=== PATIENT | male | born 1985 | race Caucasian/White ===

== ENCOUNTER 2016-09-28 15:37 | Emergency (ER) | payer OTHER ==
[2016-09-28 15:53] VITALS: BP 131/73
[2016-09-28] MEDS ORDERED: Lidocaine 1% 20 ML MDV INJECT ONE (16:14)
[2016-09-28] MEDS ORDERED: Bupivacaine 0.5% 10 ML SDV INJECT ONE (16:14)
[2016-09-28] MEDS ORDERED: ceFAZolin 1 GM in Premix Bag 1 BAG IV ONE (16:15)
[2016-09-28] MEDS ORDERED: Diphtheria,Pertussis(Acell),Tetanus Vaccine 0.5 ML Syringe IM ONE (16:17)
--- NOTE | 2016-09-28 16:27 | EDM.PDOC ---
ED HPI GENERAL MEDICAL PROBLEM - General Chief Complaint: Upper Extremity Injury/Pain Stated Complaint: PAIN LT HAND Time Seen by Provider: 09/28/16 15:54 Source of Information: Reports: Patient History Limitations: Reports: No Limitations - History of Present Illness INITIAL COMMENTS - FREE TEXT/NARRATIVE: History of present illness: []Patient was carrying a metal pipe while he tripped over a pipe and the pipe that he was carrying smashed his left small finger at noon today. Review of systems: As per history of present illness and below otherwise all systems reviewed and negative. Past medical history: As per history of present illness and as reviewed below otherwise noncontributory. Surgical history: As per history of present illness and as reviewed below otherwise noncontributory. Social history: No reported history of drug or alcohol abuse. Family history: As per history of present illness and as reviewed below otherwise noncontributory. Physical exam: General: Well developed, well nourished in NAD HEENT: Atraumatic, normocephalic, pupils reactive, negative for conjunctival pallor or scleral icterus, mucous membranes moist, throat clear, neck supple, nontender, trachea midline. Lungs: Clear to auscultation, breath sounds equal bilaterally, chest nontender. Heart: S1S2, regular, negative for clicks, rubs, or JVD. Abdomen: Soft, nondistended, nontender. Negative for masses or hepatosplenomegaly. Negative for costovertebral tenderness. Pelvis: Stable nontender. Genitourinary: Deferred. Rectal: Deferred. Extremities: 1.5 centimeter laceration left dorsal base of the small finger, patient has sensation distally and brisk capillary refill. He is able to generally move his finger fully from the MCP joint. He is unable to move it from the PIP and DIP joints effectively. negative for cords or calf pain. Neurovascular unremarkable. Neuro: Awake, alert, oriented. Cranial nerves II through XII unremarkable. Cerebellum unremarkable. Motor and sensory unremarkable throughout. Exam nonfocal. Diagnostics: []X-ray showing transverse fracture shaft of the proximal phalanx of the fifth finger Therapeutics: []Ancef, gentamicin, tetanus updated, in digital block Impression: []Open fracture left fifth proximal phalanx Plan: []I consulted Dr. Jace Jean-Baptiste answered in [place] and he recommended ulnar gutter, Keflex, pain meds and follow-up in 48 hours. Patient will need surgery for pinning. He can see the patient in [place] at 4 PM on September 30 if she is unable to follow-up with Dr. Welch here locally. Definitive disposition and diagnosis as appropriate pending reevaluation and review of above. Left Hand Pain Score (Numeric/FACES): 4 - Related Data Allergies Allergy/AdvReac Type Severity Reaction Status Date / Time No Known Allergies Allergy Verified 09/28/16 15:51 Home Meds: Home Meds . [No Known Home Meds] 09/28/16 [History] Past Medical History - Past Health History Medical/Surgical History: Denies Medical/Surgical History Social & Family History - Family History Family Medical History: Noncontributory - Tobacco Use Smoking Status *Q: Never Smoker - Recreational Drug Use Recreational Drug Use: No Review of Systems - Review of Systems Review Of Systems: See Below (See history of present illness) ED EXAM, GENERAL - Physical Exam Exam: See Below (See history of present illness) Course - Vital Signs Last Recorded V/S: Last Vital Signs Temp 36.7 C 09/28/16 15:51 Pulse 64 09/28/16 15:51 Resp 18 09/28/16 15:51 BP 131/73 09/28/16 15:51 Pulse Ox 96 09/28/16 15:51 - Orders/Labs/Meds Orders: Active Orders 24 hr Category Date Time Status Vaccines to be Administered [RC] PER UNIT ROUTINE Care 09/28/16 16:17 Active Hand Comp Min 3V Lt [CR] Stat Exams 09/28/16 15:53 Taken Bacitracin [Bacitracin Oint 1 GM] Med 09/28/16 17:15 Once 1 dose TOP ONETIME ONE Gentamicin 500 mg Med 09/28/16 17:15 Active Sodium Chloride 0.9% [Normal Saline] 100 ml IV ONETIME Saline Lock Insert [OM.PC] Stat Oth 09/28/16 16:15 Ordered Medication Orders Gentamicin Sulfate 500 mg/ (Sodium Chloride) 112.5 mls @ 180 mls/hr IV ONETIME ONE Stop: 09/28/16 17:52 Meds: Medications Generic Name Dose Route Start Last Admin Trade Name Freq PRN Reason Stop Dose Admin Gentamicin Sulfate 500 mg/ 112.5 mls @ 180 mls/hr 09/28/16 17:15 Sodium Chloride IV 09/28/16 17:52 ONETIME ONE Discontinued Medications Generic Name Dose Route Start Last Admin Trade Name Shama PRN Reason Stop Dose Admin Bupivacaine HCl 10 ml 09/28/16 16:14 09/28/16 16:19 Sensorcaine-Mpf 0.5% INJECT 09/28/16 16:15 10 ml ONETIME ONE Administration Diphtheria/Tetanus/Acell Pertussis 0.5 ml 09/28/16 16:17 09/28/16 16:25 Adacel IM 09/28/16 16:18 0.5 ml .ONCE ONE Administration Cefazolin Sodium/Dextrose 1 gm 50 mls @ 100 mls/hr 09/28/16 16:15 09/28/16 16 :24 / Premix IV 09/28/16 16:44 100 mls/hr ONETIME ONE Administration Gentamicin Sulfate 500 mg/ 62.5 mls @ 100 mls/hr 09/28/16 16:31 Sodium Chloride IV 09/28/16 17:02 ONETIME ONE Lidocaine HCl 20 ml 09/28/16 16:14 09/28/16 16:19 Xylocaine 1% INJECT 09/28/16 16:15 20 ml ONETIME ONE Administration Departure - Departure Time of Disposition: 17:24 Disposition: Home, Self-Care 01 Condition: Good Clinical Impression: Fracture of finger, proximal phalanx, left, open Qualifiers: Encounter type: initial encounter Finger: little finger Fracture alignment: displaced Qualified Code(s): S62.617B - Displaced fracture of proximal phalanx of left little finger, initial encounter for open fracture Clinical Impression: (Ruled Out): Open fracture, Open fracture of phalanx of left fifth toe, Open fracture of left hand - Discharge Information Forms: ED Department Discharge Additional Instructions: The following information is given to patients seen in the emergency department who are being discharged to home. This information is to outline your options for follow-up care. We provide all patients seen in our emergency department with a follow-up referral. The need for follow-up, as well as the timing and circumstances, are variable depending upon the specifics of your emergency department visit. If you don't have a primary care physician on staff, we will provide you with a referral. We always advise you to contact your personal physician following an emergency department visit to inform them of the circumstance of the visit and for follow-up with them and/or the need for any referrals to a consulting specialist. The emergency department will also refer you to a specialist when appropriate. This referral assures that you have the opportunity for follow-up care with a specialist. All of these measure are taken in an effort to provide you with optimal care, which includes your follow-up. Under all circumstances we always encourage you to contact your private physician who remains a resource for coordinating your care. When calling for follow-up care, please make the office aware that this follow-up is from your recent emergency room visit. If for any reason you are refused follow-up, please contact the [facility] Emergency Department at and asked to speak to the emergency department charge nurse. Ice and elevate hand much as possible, Keflex 4 times a day for 10 days, Haldol and/or Motrin for pain, follow up with Dr. Welch call tomorrow for appointment: [facility] Specialty Care - Plastic Surgery Professional Building [address] [place] [address], [address] [place] [address] If you cannot get in tomorrow or Thursday early follow up with Dr. Jace Jean-Baptiste on September 30 at 4 PM in [place] Call [phone] to make that appointment. Return to ER if any fevers, redness, increased pain occur - My Orders Last 24 Hours: My Active Orders 09/28/16 15:53 Hand Comp Min 3V Lt [CR] Stat 09/28/16 16:15 Saline Lock Insert [OM.PC] Stat 09/28/16 16:17 Vaccines to be Administered [RC] PER UNIT ROUTINE 09/28/16 17:15 Bacitracin [Bacitracin Oint 1 GM] 1 dose TOP ONETIME ONE Gentamicin 500 mg Sodium Chloride 0.9% [Normal Saline] 100 ml IV ONETIME - Assessment/Plan Last 24 Hours: My Active Orders 09/28/16 15:53 Hand Comp Min 3V Lt [CR] Stat 09/28/16 16:15 Saline Lock Insert [OM.PC] Stat 09/28/16 16:17 Vaccines to be Administered [RC] PER UNIT ROUTINE 09/28/16 17:15 Bacitracin [Bacitracin Oint 1 GM] 1 dose TOP ONETIME ONE Gentamicin 500 mg Sodium Chloride 0.9% [Normal Saline] 100 ml IV ONETIME
[2016-09-28] MEDS ORDERED: GENTAMICIN IV ONE (16:31)
[2016-09-28] MEDS ORDERED: SODIUM CHLORIDE 0.9% IV ONE (16:31)
[2016-09-28] MEDS ORDERED: Gentamicin 500 MG in Sodium Chloride 0.9% 100 ML IV ONE (17:15)
[2016-09-28] MEDS ORDERED: Bacitracin Oint 1 GM U/D Packet TOP ONE (17:15)
--- NOTE | 2016-09-29 15:03 | CR ---
EXAM DATE: 09/28/16 PATIENT'S AGE: 30 Patient: LUCIO MERINO Facility: [place], [place] Site . Site : 1985 Study: XRay Extremity Left HAND [id number]/23/2017 4:06:50 PM Ordering Physician: Ney Mcguire Final Report: HISTORY Deformity, pain and numbness after crush injury. Findings: Three views of the left hand are provided. There is a transverse fracture through the midportion of the proximal phalanx of the 5th finger with complete ulnar displacement of the distal fragment by the width of the shaft as well as overriding of the margins by approximately 6-7 mm. There is no evidence for fracture, dislocation or arthritic change elsewhere. Dictated by Valente Willams MD @ Sep 28 2016 4:10PM (Electronic Signature) Report Signed by Proxy. NIC
--- NOTE | 2016-09-29 15:04 | CR ---
EXAM DATE: 09/28/16 PATIENT'S AGE: 30 Patient: LUCIO MERINO Facility: [place], [place] Site Site : 1985 Study: XRay Extremity Left HAND [id number]/23/2017 6:17:54 PM Ordering Physician: EMERSON PRINCE MD Final Report: Indication: Fracture status post splint placement Technique: Two views left hand Comparison: Same date at 3:57 p.m. Findings: There is a splint along the lateral aspect of the left hand with improved alignment of a mildly displaced transverse fracture through the midshaft of the left 5th proximal phalanx. There is a volar apex angulation of the fracture. The distal fracture fragment is medially displaced approximately 1/2 shaft width. Impression: Improvement in alignment of a mildly displaced fracture through the midshaft of the left 5th proximal phalanx. Dictated by Danielle Vega MD @ Sep 28 2016 6:33PM (Electronic Signature) Report Signed by Proxy. NIC
== END 2016-09-28 18:43 | disposition home or self-care (01) ==
LOC: MW.ED 15:37
DX: S62.617B Displaced fracture of proximal phalanx of left little finger, initial encounter for open fracture (principal); W23.1XXA Caught, crushed, jammed, or pinched between stationary objects, initial encounter; Z23 Encounter for immunization
CPT/HCPCS: 29125; 64450; 73120; 73130; 90471; 90715; 96365; 99283; J0690; J1580; J7030

== ENCOUNTER 2016-10-01 09:43 | Day surgery (SDC) | payer OTHER ==
[~2016-10-01 09:43] MED LIST: Bupivacaine 0.25%/EPINEPHrine 1:200,000 10 ML SDV ONE; Lactated Ringers 1,000 ML IV SCH; ceFAZolin 2 GM in Premix Bag 1 BAG IV ONE
[2016-10-01] MEDS ORDERED: Bupivacaine 0.25%/EPINEPHrine 1:200,000 10 ML SDV INJECT ONE (10:00)
[2016-10-01] MEDS ORDERED: Acetaminophen/HYDROcodone 325-5 MG Tab PO PRN (10:00)
--- NOTE | 2016-10-01 10:29 | PCM.PREANE ---
Preanesthetic Assessment - Anesthesia/Transfusion/Family Hx Anesthesia History: No Prior Anesthesia Family History of Anesthesia Reaction: No Transfusion History: No Prior Transfusion(s) Intubation History: Unknown - Review of Systems General: No Symptoms Pulmonary: No Symptoms Cardiovascular: No Symptoms Gastrointestinal: No Symptoms Neurological: No Symptoms Other: Reports: None - Physical Assessment O2 Sat by Pulse Oximetry: 98 Respiratory Rate: 16 Vital Signs: Last Vital Signs Temp 37.9 C 10/01/16 10:11 Pulse 54 L 10/01/16 10:11 Resp 16 10/01/16 10:11 BP 125/70 10/01/16 10:11 Pulse Ox 98 10/01/16 10:11 Height: 1.78 m Weight: 107.048 kg ASA Class: 2 Mental Status: Alert & Oriented x3 Airway Class: Mallampati = 2 Dentition: Reports: Normal Dentition Thyro-Mental Finger Breadths: 3 Mouth Opening Finger Breadths: 3 ROM/Head Extension: Full Lungs: Clear to Auscultation, Normal Respiratory Effort Cardiovascular: Regular Rate, Regular Rhythm - Allergies Allergies/Adverse Reactions: Allergies Allergy/AdvReac Type Severity Reaction Status Date / Time No Known Allergies Allergy Verified 09/28/16 15:51 - Acknowledgements Anesthesia Type Planned: General Anesthesia Pt an Appropriate Candidate for the Planned Anesthesia: Yes Alternatives and Risks of Anesthesia Discussed w Pt/Guardian: Yes Pt/Guardian Understands and Agrees with Anesthesia Plan: Yes PreAnesthesia Questionnaire - Past Health History Medical/Surgical History: Denies Medical/Surgical History Musculoskeletal History: Reports: Other (See Below) (left small finger proximal phalanx fx) Endocrine/Metabolic History: Reports: Obesity/BMI 30+ - Past Surgical History Head Surgeries/Procedures: Reports: None - SUBSTANCE USE Smoking Status *Q: Never Smoker Recreational Drug Use History: No - HOME MEDS Home Medications: Home Meds Cephalexin 500 mg PO QID 09/29/16 [History] Ibuprofen [Advil] 3 tab PO ASDIRECTED PRN 09/29/16 [History] traMADol HCl [Tramadol HCl] 50 mg PO ASDIRECTED PRN 09/29/16 [History] - CURRENT (IN HOUSE) MEDS Current Meds: Current Medications Hydrocodone Bitart/Acetaminophen (Hamler 325-5 Mg) 1 tab PO Q4H PRN PRN Reason: Pain Lactated Ringer's (Ringers, Lactated) 1,000 mls @ 125 mls/hr IV ASDIRECTED RAZIA Last Admin: 10/01/16 10:17 Dose: 125 mls/hr Discontinued Medications Bupivacaine HCl/Epinephrine Bitart (Marcaine 0.25%/Epinephrine 1:200,000) 20 ml INJECT ONETIME ONE Stop: 10/01/16 10:01 Bupivacaine HCl/Epinephrine Bitart (Marcaine 0.25%/Epinephrine 1:200,000) Confirm Administered Dose 20 ml .ROUTE .STK-MED ONE Stop: 10/01/16 07:29 Cefazolin Sodium/Dextrose 2 gm (/ Premix) 50 mls @ 100 mls/hr IV ONETIME ONE Stop: 10/01/16 08:57
[2016-10-01] MEDS ORDERED: Propofol 200 MG/20 ML SDV ONE (12:43)
[2016-10-01] MEDS ORDERED: Ondansetron 4 MG/2 ML SDV ONE (12:43)
[2016-10-01] MEDS ORDERED: Midazolam 1 MG/ML 2 ML SDV ONE (12:43)
[2016-10-01] MEDS ORDERED: fentaNYL 250 MCG/5 ML SDV ONE (12:43)
[2016-10-01] MEDS ORDERED: ceFAZolin 1 GM Vial ONE (12:50)
[2016-10-01] MEDS ORDERED: HYDROmorphone 2 MG/ML Syringe ONE (12:55)
[2016-10-01] MEDS ORDERED: Dexamethasone 4 MG/ML 5 ML MDV ONE (13:02)
[2016-10-01] MEDS ORDERED: Ketorolac 30 MG/ML SDV ONE (13:10)
[2016-10-01 14:31] VITALS: BP 120/74
--- NOTE | 2016-10-02 09:11 | PCM.OPNOTE ---
- General Post-Op/Procedure Note Date of Surgery/Procedure: 10/01/16 Operative Procedure(s): open reduction pin fixation of left small finger proximal phalanx fracture Pre Op Diagnosis: left small finger proximal phalanx fracture Post-Op Diagnosis: Same Anesthesia Technique: General LMA, Local Primary Surgeon: Maryann Welch Roofer Helper: Danielle Bourne Complications: None Condition: Good Free Text/Narrative:: [id number]
--- NOTE | 2016-10-02 11:11 | OR ---
SURGEON: DEENA BOWLES MD DATE OF PROCEDURE: 10/01/2016 PREOPERATIVE DIAGNOSIS: Left small finger proximal phalanx fracture. POSTOPERATIVE DIAGNOSIS: Left small finger proximal phalanx fracture. PROCEDURE: Open reduction pin fixation of left small finger proximal phalanx fracture. BIOFUELS MANAGER: AMY Mata ANESTHESIA: General LMA with local. INDICATIONS: Mr. Ramesh Belle is seen today in evaluation for an open fracture of the left small finger proximal phalanx. He was seen in the emergency room and referral was made to [place], but he was unable to be transferred there. The patient opted to follow up with us the next in clinic. We discussed risks and benefits of open reduction and percutaneous pin fixation. He was in agreement to proceed. Unfortunately, he is outside of the 6-hour window for standard of care that we would prefer, but the emergency room copiously washed out the wound and did close the incision line with Steri-Strips and placed them in a splint until followup. We discussed risks and benefits including a slightly increased risk of infection given the timeframe. He would still like to proceed and we will do this in the operating room for the best outcome for him. Risks were including, but not limited to, bleeding, infection, damage to underlying or overlying structures, possible need for future interventions and possible scarring and possible increased risk of infection. He understands and wishes to proceed. This was a work for safety injury. PROCEDURE IN DETAIL: After informed consent was obtained and placed on the chart, the patient was brought to the operating theater and laid in supine position. After adequate general LMA anesthesia was obtained, the area was prepped and draped in a normal fashion. A time-out was completed to confirm side and site. Attention was then paid to prepping and draping with a Betadine cleansing solution and attention was then paid to fluoroscopic examination. Using the dorsal laceration, the reduction was obtained and held in place. Two 0.45 K- wires were then placed longitudinally down the shaft of the fracture itself. Once this was completed, an appropriate reduction was confirmed with fluoroscopy. Attention was then paid to closure of the wound using a 5-0 stitch in an interrupted fashion. The wound was copiously irrigated prior to closure and all tendons were appreciated to be intact. The pin sites were then covered with Jurgan balls after being trimmed and dressed with Xeroform. The incision was dressed with Xeroform as well. A short- arm ulnar gutter splint was then placed. The patient tolerated this well with plaster. All counts and needles were correct at the end of the case and the patient tolerated this well. FOLLOWUP INSTRUCTIONS: The patient will see us in clinic in approximately 2 weeks and sooner if any problems, questions, or concerns. He was given a prescription for [place] for pain control. HEGGTHE / DONTEL /[id number]
--- NOTE | 2016-10-10 15:07 | CR ---
EXAMINATION: Left hand HISTORY: Reduction COMPARISON: 09/28/2016 TECHNIQUE: 4 films provided FINDINGS/IMPRESSION: Operative control films demonstrate reduction of a mid fifth proximal phalanx f racture fixated by 2 pins.
== END 2016-10-01 14:29 | disposition home or self-care (01) ==
LOC: MW.SDS 09:43
PROVIDERS: ATTEND Plastic Surgery
DX: S62.617B Displaced fracture of proximal phalanx of left little finger, initial encounter for open fracture (principal)
CPT/HCPCS: 26735; J0690; J1100; J1170; J1885; J2250; J2405; J3010; J7120; 01820; 76000; 76000-26; J2704

== ENCOUNTER 2017-07-23 22:45 | Emergency (ER) | payer OTHER ==
--- NOTE | 2017-07-23 23:08 | EDM.PDOC ---
ED HPI GENERAL MEDICAL PROBLEM - General Chief Complaint: Behavioral/Psych Stated Complaint: MENTAL HEALTH Time Seen by Provider: 07/23/17 23:08 Source of Information: Reports: Patient, Police - History of Present Illness INITIAL COMMENTS - FREE TEXT/NARRATIVE: HISTORY AND PHYSICAL: History of present illness: [Patient presents with suicidal ideation via police officers Apparently is going through a divorce as of recent, he has been driving around this evening with a handgun with suicidal thoughts he is sent pictures to his ex - with the barrel of the hand gun in his mouth which prompted her to call the police He arrives as such no fever nausea vomiting chills sweats no chest pain shortness breath headache dizziness palpitation no bowel or urine symptoms Denies chronic illness disease her medications ] Review of systems: As per history of present illness and below otherwise all systems reviewed and negative. Past medical history: As per history of present illness and as reviewed below otherwise noncontributory. Surgical history: As per history of present illness and as reviewed below otherwise noncontributory. Social history: No reported history of drug or alcohol abuse. Family history: As per history of present illness and as reviewed below otherwise noncontributory. Physical exam: HEENT: Atraumatic, normocephalic, pupils reactive, negative for conjunctival pallor or scleral icterus, mucous membranes moist, throat clear, neck supple, nontender, trachea midline. Lungs: Clear to auscultation, breath sounds equal bilaterally, chest nontender. Heart: S1S2, regular, negative for clicks, rubs, or JVD. Abdomen: Soft, nondistended, nontender. Negative for masses or hepatosplenomegaly. Negative for costovertebral tenderness. Pelvis: Stable nontender. Genitourinary: Deferred. Rectal: Deferred. Extremities: Atraumatic, negative for cords or calf pain. Neurovascular unremarkable. Neuro: Awake, alert, oriented. Cranial nerves II through XII unremarkable. Cerebellum unremarkable. Motor and sensory unremarkable throughout. Exam nonfocal. Diagnostics: [ CBC CMP UA EKG chest 1 view drug screen aspirin and Tylenol levels ] Therapeutics: [ none ] Impression: [ suicidal ideation Patient will be transported to [facility] Dr. Goldberg accepting psychiatrist compensation consulting manager] Definitive disposition and diagnosis as appropriate pending reevaluation and review of above. - Related Data Allergies Allergy/AdvReac Type Severity Reaction Status Date / Time No Known Allergies Allergy Verified 07/24/17 00:24 Home Meds: Home Meds . [No Known Home Meds] 07/24/17 [History] Past Medical History - Past Health History Medical/Surgical History: Denies Medical/Surgical History Musculoskeletal History: Reports: Other (See Below) Endocrine/Metabolic History: Reports: Obesity/BMI 30+ - Past Surgical History Head Surgeries/Procedures: Reports: None Social & Family History - Family History Family Medical History: Noncontributory ED ROS GENERAL - Review of Systems Review Of Systems: ROS reveals no pertinent complaints other than HPI. ED EXAM, GENERAL - Physical Exam Exam: See Below Course - Vital Signs Last Recorded V/S: Last Vital Signs Temp 98.4 F 07/23/17 23:00 Pulse 71 07/24/17 02:44 Resp 14 07/24/17 02:04 BP 102/56 L 07/24/17 02:44 Pulse Ox 98 07/24/17 02:44 - Orders/Labs/Meds Orders: Active Orders 24 hr Category Date Time Status EKG Documentation Completion [RC] STAT Care 07/23/17 23:08 Active Chest 1V Frontal [CR] Stat Exams 07/23/17 23:08 Taken DRUG SCREEN, URINE [URCHEM] Stat Lab 07/23/17 23:13 Ordered UA W/MICROSCOPIC [URIN] Stat Lab 07/23/17 23:13 Ordered Labs: Laboratory Tests 07/23/17 07/23/17 07/23/17 Range/Units 23:13 23:13 23:25 WBC 6.78 (4.0-11.0) K/uL RBC 5.01 (4.50-5.90) M/uL Hgb 15.1 (13.0-17.0) g/dL Hct 42.9 (38.0-50.0) % MCV 85.6 (80.0-98.0) fL MCH 30.1 (27.0-32.0) pg MCHC 35.2 (31.0-37.0) g/dL RDW Std Deviation 42.3 (28.0-62.0) fl RDW Coeff of Mark 14 (11.0-15.0) % Plt Count 198 (150-400) K/uL MPV 10.90 (7.40-12.00) fL Neut % (Auto) 68.8 (48.0-80.0) % Lymph % (Auto) 21.8 (16.0-40.0) % [place] % (Auto) 8.1 (0.0-15.0) % Eos % (Auto) 0.9 (0.0-7.0) % Baso % (Auto) 0.4 (0.0-1.5) % Neut # (Auto) 4.7 (1.4-5.7) K/uL Lymph # (Auto) 1.5 (0.6-2.4) K/uL [place] # (Auto) 0.6 (0.0-0.8) K/uL Eos # (Auto) 0.1 (0.0-0.7) K/uL Baso # (Auto) 0.0 (0.0-0.1) K/uL Nucleated RBC % 0.0 /100WBC Nucleated RBCs # 0 K/uL Sodium (136-148) mmol/L Potassium (3.5-5.1) mmol/L Chloride (98-107) mmol/L Carbon Dioxide (21.0-32.0) mmol/L BUN (7.0-18.0) mg/dL Creatinine (0.8-1.3) mg/dL Est Cr Clr Drug Dosing Estimated GFR (MDRD) ml/min Glucose (74-106) mg/dL Calcium (8.5-10.1) mg/dL Total Bilirubin (0.2-1.0) mg/dL AST (15-37) IU/L ALT (14-63) IU/L Alkaline Phosphatase (46-116) U/L Total Protein (6.4-8.2) g/dL Albumin (3.4-5.0) g/dL Globulin (2.0-3.5) g/dL Albumin/Globulin Ratio (1.3-2.8) TSH 3rd Generation (0.36-3.74) uIU/mL Urine Color YELLOW Urine Appearance CLEAR Urine pH 7.0 (5.0-8.0) Ur Specific [place] <= 1.005 (1.001-1.035) Urine Protein NEGATIVE (NEGATIVE) mg/dL Urine Glucose (UA) NEGATIVE (NEGATIVE) mg/dL Urine Ketones NEGATIVE (NEGATIVE) mg/dL Urine Occult Blood NEGATIVE (NEGATIVE) Urine Nitrite NEGATIVE (NEGATIVE) Urine Bilirubin NEGATIVE (NEGATIVE) Urine Urobilinogen 0.2 (<2.0) EU/dL Ur Leukocyte Esterase NEGATIVE (NEGATIVE) Urine RBC 0-1 (0-2/HPF) Urine WBC 0-1 (0-5/HPF) Ur Epithelial Cells RARE (NONE-FEW) Urine Bacteria RARE (NEGATIVE) Salicylates (0-20) mg/dL Urine Opiates Screen NEGATIVE (NEGATIVE) Ur Oxycodone Screen NEGATIVE (NEGATIVE) Urine Methadone Screen NEGATIVE (NEGATIVE) Acetaminophen ug/mL Ur Barbiturates Screen NEGATIVE (NEGATIVE) Ur Phencyclidine Scrn NEGATIVE (NEGATIVE) Ur Amphetamine Screen NEGATIVE (NEGATIVE) U Methamphetamines Scrn NEGATIVE (NEGATIVE) U Benzodiazepines Scrn NEGATIVE (NEGATIVE) U Cocaine Metab Screen NEGATIVE (NEGATIVE) U Marijuana (THC) Screen NEGATIVE (NEGATIVE) Ethyl Alcohol mg/dL 07/23/17 07/24/17 Range/Units 23:25 01:20 WBC (4.0-11.0) K/uL RBC (4.50-5.90) M/uL Hgb (13.0-17.0) g/dL Hct (38.0-50.0) % MCV (80.0-98.0) fL MCH (27.0-32.0) pg MCHC (31.0-37.0) g/dL RDW Std Deviation (28.0-62.0) fl RDW Coeff of Mark (11.0-15.0) % Plt Count (150-400) K/uL MPV (7.40-12.00) fL Neut % (Auto) (48.0-80.0) % Lymph % (Auto) (16.0-40.0) % [place] % (Auto) (0.0-15.0) % Eos % (Auto) (0.0-7.0) % Baso % (Auto) (0.0-1.5) % Neut # (Auto) (1.4-5.7) K/uL Lymph # (Auto) (0.6-2.4) K/uL [place] # (Auto) (0.0-0.8) K/uL Eos # (Auto) (0.0-0.7) K/uL Baso # (Auto) (0.0-0.1) K/uL Nucleated RBC % /100WBC Nucleated RBCs # K/uL Sodium 140 (136-148) mmol/L Potassium 3.9 (3.5-5.1) mmol/L Chloride 107 (98-107) mmol/L Carbon Dioxide 27.9 (21.0-32.0) mmol/L BUN 12 (7.0-18.0) mg/dL Creatinine 0.9 (0.8-1.3) mg/dL Est Cr Clr Drug Dosing TNP Estimated GFR (MDRD) > 60.0 ml/min Glucose 98 (74-106) mg/dL Calcium 8.9 (8.5-10.1) mg/dL Total Bilirubin 0.9 (0.2-1.0) mg/dL AST 22 (15-37) IU/L ALT 35 (14-63) IU/L Alkaline Phosphatase 70 (46-116) U/L Total Protein 7.3 (6.4-8.2) g/dL Albumin 3.7 (3.4-5.0) g/dL Globulin 3.6 H (2.0-3.5) g/dL Albumin/Globulin Ratio 1.0 L (1.3-2.8) TSH 3rd Generation 1.37 (0.36-3.74) uIU/mL Urine Color Urine Appearance Urine pH (5.0-8.0) Ur Specific [place] (1.001-1.035) Urine Protein (NEGATIVE) mg/dL Urine Glucose (UA) (NEGATIVE) mg/dL Urine Ketones (NEGATIVE) mg/dL Urine Occult Blood (NEGATIVE) Urine Nitrite (NEGATIVE) Urine Bilirubin (NEGATIVE) Urine Urobilinogen (<2.0) EU/dL Ur Leukocyte Esterase (NEGATIVE) Urine RBC (0-2/HPF) Urine WBC (0-5/HPF) Ur Epithelial Cells (NONE-FEW) Urine Bacteria (NEGATIVE) Salicylates <0.2 (0-20) mg/dL Urine Opiates Screen (NEGATIVE) Ur Oxycodone Screen (NEGATIVE) Urine Methadone Screen (NEGATIVE) Acetaminophen 0.0 ug/mL Ur Barbiturates Screen (NEGATIVE) Ur Phencyclidine Scrn (NEGATIVE) Ur Amphetamine Screen (NEGATIVE) U Methamphetamines Scrn (NEGATIVE) U Benzodiazepines Scrn (NEGATIVE) U Cocaine Metab Screen (NEGATIVE) U Marijuana (THC) Screen (NEGATIVE) Ethyl Alcohol < 3.0 mg/dL Departure - Departure Time of Disposition: 03:25 Disposition: DC/Tfer to Other 70 Condition: Fair Clinical Impression: Suicidal ideation - Discharge Information Referrals: PCP,None [Primary Care Provider] - Forms: ED Department Discharge - My Orders Last 24 Hours: My Active Orders 07/23/17 23:08 EKG Documentation Completion [RC] STAT Chest 1V Frontal [CR] Stat 07/23/17 23:13 DRUG SCREEN, URINE [URCHEM] Stat UA W/MICROSCOPIC [URIN] Stat - Assessment/Plan Last 24 Hours: My Active Orders 07/23/17 23:08 EKG Documentation Completion [RC] STAT Chest 1V Frontal [CR] Stat 07/23/17 23:13 DRUG SCREEN, URINE [URCHEM] Stat UA W/MICROSCOPIC [URIN] Stat
[2017-07-23 23:56] LABS: CHLORIDE,CL 107 mmol/L (98-107); SODIUM,NA 140 mmol/L (136-148)
[2017-07-24 08:37] VITALS: BP 142/90
--- NOTE | 2017-07-24 13:16 | CR ---
EXAM DATE: 07/23/17 PATIENT'S AGE: 31 Patient: LUCIO MERINO Facility: [place], [place] Site . Site : [id number] Study: XRay Chest [id number] 11:28:35 PM Ordering Physician: Len Leigh Final Report: INDICATION: Mental health, suicidal. TECHNIQUE: Chest radiograph 1 view COMPARISON: None FINDINGS: Cardiovascular and mediastinum: The heart silhouette is normal in size and morphology. The mediastinum is normal in appearance. Lungs and pleural spaces: Both lungs are unremarkable in appearance. No sign of pleural effusion seen. No pneumothorax is identified. Bones and soft tissues: No significant findings. IMPRESSION: 1. Negative one-view chest. Dictated by Alexis Sandoval MD @ 07/23/2017 11:31:41 PM Dictated by: Alexis Sandoval MD @ 07/23/2017 23:31:49 (Electronic Signature) Report Signed by Proxy. [facility]ERKemar
== END 2017-07-24 08:32 | disposition other institution (70) ==
LOC: MW.ED 22:45
DX: R45.851 Suicidal ideations (principal)
CPT/HCPCS: 36415; 71045; 80053; 80305; 81001; 84443; 85025; 93005; 99285; G0480; 99283